=== PATIENT | male | born 1980 | race Caucasian/White ===

== ENCOUNTER 2023-06-01 06:10 | Emergency (ER) | payer SELFPAY ==
[~2023-06-01] VITALS: Ht 180.3 cm; Wt 90.7 kg
[2023-06-01] MEDS ORDERED: BENZ-13 PO (06:40)
[2023-06-01 06:48] VITALS: BP 149/98; TEMP 98.5; O2SAT 99
== END 2023-06-01 06:49 | disposition home or self-care (01) ==
LOC: ER 06:10
DX: R05.9 Cough, unspecified (principal); F17.210 Nicotine dependence, cigarettes, uncomplicated
CPT/HCPCS: 71045; A4606; A4663